=== PATIENT | female | born 2000 | race African-American/Black ===

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

== ENCOUNTER 2018-08-17 07:54 | Emergency (ER) | payer SELFPAY ==
[2018-08-17 08:37] LABS: Bilirubin Negative (Negative); Blood, Urine Large (Negative); Clarity CLOUDY (Clear); Glucose, Urine (Dipstick) Negative (Negative); Leukocyte Moderate (Negative); Nitrite Negative (Negative); Protein, Urine (Dipstick) Trace mg/dL (Neg-Trace); Specific Gravity, Urine 1.025 (1.002-1.036)
[2018-08-17 08:39] LABS: Pathc Cast-AUWi Flag 0.58 (0-2.49)
[2018-08-17 08:40] LABS: Pregnancy Test - Urine (BHCG) POSITIVE (Negative)
[2018-08-17 08:41] LABS: Pregu Control Background? CLEAR/WHITE (CLR/WHITE); Pregu Control Bar Appear? YES (CONTROL BAR); Specific Gravity 1.026 (1.002-1.036); Yeast-AUWi Flag 53.5 (0-25.0)
[2018-08-17 08:59] LABS: Bacteria/HPF Rare-Few HPF (None Seen)
[2018-08-17 09:00] LABS: Yeast-All Forms None Seen HPF (None Seen)
[2018-08-17] MEDS ORDERED: Acetaminophen 325 MG TAB ONE (09:06)
--- NOTE | 2018-08-17 10:47 | ULT ---
TRANSABDOMINAL AND TRANSVAGINAL PELVIC ULTRASOUND: Date: 08-17-18 Provided Clinical History: Vaginal bleeding. Positive test. FINDINGS: Uterus measures about 7.4 x 3.1 x 5.5 cm. There is no evidence for intrauterine gestational sac. Ther e is mild nonspecific thickening of the uterine endometrium. The right and left ovaries demonstrate normal flow on color doppler and spectral analysis. There is a trace amount of nonspecific free pelvic fluid. IMPRESSION: No evidence for intrauterine gestational sac. Ectopic cannot be excluded on the basis of th is study alone. Follow up BETA HCG values is recommended. POS: [facility]
== END 2018-08-17 11:46 | disposition home or self-care (01) ==
LOC: ERS 07:54
DX: O20.0 Threatened abortion (principal)
CPT/HCPCS: 36415; 76856; 81003; 81015; 81025; 84702; 86900; 86901; 87491; 87591

== ENCOUNTER 2018-08-19 08:40 | Emergency (ER) | payer SELFPAY ==
[2018-08-19 09:08] LABS: #Basophils 0.1 thou/uL (0.0-0.2); #Eosinphils 0.3 thou/uL (0.0-0.7); #Lymphocytes 2.7 thou/uL (1.20-3.40); #Monocytes 0.7 thou/uL (0.11-0.59); #Neutrophils 8.9 thou/uL (1.40-6.50); %Basophils 0.9 % (0.0-1.0); %Eosinophils 2.1 % (0.0-10.0); %Lymphocytes 21.1 % (28.0-48.0); %Monocytes 5.7 % (0.0-4.0); %Neutrophils 70.3 % (31.0-61.0); Hemoglobin 12.3 g/dL (12.0-16.0); Mean Corpuscular HGB CONC 32.5 g/dL (32.0-36.0); Mean Corpuscular Hemoglobin 31.3 pg (25.0-35.0); Mean Corpuscular Volume 96.4 fL (78.0-98.0); Mean Platelet Volume 7.3 fL (7.4-10.4); Platelet Count 280 thou/uL (130-400); RBC Distribution Width 11.6 % (11.5-14.5); Red Blood Cell (RBC) Count 3.92 mill/uL (4.00-5.20); White Blood Cell (WBC) Count 12.6 thou/uL (4.8-10.8)
--- NOTE | 2018-08-19 10:34 | ULT ---
PELVIC ULTRASOUND: HISTORY: Repeat ultrasound and HCG. Threatened . Previous HCG was 248. Current HCG is 150. COMPARISON: 08/17/2018. TECHNIQUE: Transabdominal and endovaginal imaging of the pelvis is performed. Ovaries are interrogated with gra y scale, color, Doppler imaging with spectral waveform analysis. FINDINGS: Uterus is identified, measuring 7.3 x 3.6 x 4.7 cm. Endometrium has an essentially homogeneous echot exture measuring 1 cm. There is a small anechoic focus within the endometrium measuring 0.3 x 0.3 x 0.2 cm. No evidence of a gestational sac, yolk sac, or pole. Both ovaries have a normal echotexture. With regards to the right ovary, there is an isoechoic area w ith increased vascular flow measuring 1.9 x 1.7 x 1.3 cm which is nonspecific. The possibility of a corpus luteal cyst is raised. The right ovary measures 2.3 x 3.2 x 8.6 cm. The left ovary measures 2 .0 x 2.8 x 1.8 cm. No free fluid. IMPRESSION: 1. Small echogenic focus in the endometrium without evidence of gestational sac, yolk sac, or pole. The possibility of an empty gestational sac cannot be excluded. Continued surveillance with u ltrasound and beta HCG is recommended. 2. Isoechoic focus with increased vascularity in the right ovary which may represent a corpus luteal cyst. POS: [facility]
== END 2018-08-19 10:41 | disposition home or self-care (01) ==
LOC: ERS 08:40
DX: O03.9 Complete or unspecified spontaneous abortion without complication (principal)
CPT/HCPCS: 36415; 76856; 84702; 85025

== ENCOUNTER 2018-11-03 11:48 | Emergency (ER) | payer OTHER, SELFPAY ==
[2018-11-03 12:13] LABS: Bilirubin Negative (Negative); Blood, Urine Negative (Negative); Clarity CLOUDY (Clear); Glucose, Urine (Dipstick) Negative (Negative); Leukocyte Small (Negative); Nitrite Negative (Negative); Protein, Urine (Dipstick) Negative (Neg-Trace); Specific Gravity, Urine 1.023 (1.002-1.036); Urobilinogen 0.2 mg/dL (0.2-1.0); pH, Urine 7.5 (5.0-9.0)
[2018-11-03 12:15] LABS: Bacteria/HPF None Seen HPF (None Seen); Hyaline Casts/LPF 0-3 HYALINE CAST LPF (0-3 Hyaline); RBC/HPF 0-3 HPF (0-3)
[2018-11-03 12:16] LABS: Pregnancy Test - Urine (BHCG) Negative (Negative); Pregu Control Background? CLEAR/WHITE (CLR/WHITE); Pregu Control Bar Appear? YES (CONTROL BAR); Specific Gravity 1.023 (1.002-1.036)
== END 2018-11-03 12:53 | disposition left against medical advice (07) ==
LOC: ERS 11:48
DX: N89.8 Other specified noninflammatory disorders of vagina (principal)
CPT/HCPCS: 81003; 81015; 81025; 99283

== ENCOUNTER 2019-01-25 10:07 | Emergency (ER) | payer OTHER, SELFPAY ==
[2019-01-25 10:55] LABS: Pregnancy Test - Urine (BHCG) Negative (Negative); Pregu Control Background? CLEAR/WHITE (CLR/WHITE); Pregu Control Bar Appear? YES (CONTROL BAR); Specific Gravity 1.017 (1.002-1.036)
[2019-01-25 11:00] LABS: Bacteria/HPF None Seen HPF (None Seen); Bilirubin Negative (Negative); Blood, Urine Negative (Negative); Clarity Clear (Clear); Glucose, Urine (Dipstick) Normal (Negative); Leukocyte 25 Leu/uL (Negative); Nitrite Negative (Negative); Protein, Urine (Dipstick) Negative (Neg-Trace); Urobilinogen Normal mg/dL (Less than 2)
[2019-01-28 00:06] LABS: Chlamydia by PCR DETECTED (NotDetected); GC by PCR Not Detected (NotDetected)
== END 2019-01-25 11:25 | disposition home or self-care (01) ==
LOC: ERS 10:07
DX: N89.8 Other specified noninflammatory disorders of vagina (principal)
CPT/HCPCS: 81003; 81015; 81025; 87480; 87491; 87510; 87591; 87660; 99283

== ENCOUNTER 2019-05-31 09:09 | Emergency (ER) | payer OTHER, SELFPAY ==
[2019-05-31 09:55] LABS: Bilirubin Negative (Negative); Blood, Urine Negative (Negative); Clarity Clear (Clear); Glucose, Urine (Dipstick) Normal (Negative); Leukocyte Negative Leu/uL (Negative); Nitrite Negative (Negative); Protein, Urine (Dipstick) 10 mg/dL (Neg-Trace); Urobilinogen Normal mg/dL (Less than 2)
[2019-05-31 09:57] LABS: Pregnancy Test - Urine (BHCG) Negative (Negative); Pregu Control Background? CLEAR/WHITE (CLR/WHITE); Pregu Control Bar Appear? YES (CONTROL BAR); Specific Gravity 1.025 (1.002-1.036)
[2019-05-31] MEDS ORDERED: cefTRIAXone\\ROCEPHIN 250 MG VIAL ONE (10:24)
[2019-05-31] MEDS ORDERED: Lidocaine 1% PF 5 ML VIAL ONE (10:24)
== END 2019-05-31 10:45 | disposition home or self-care (01) ==
LOC: ERS 09:09
DX: N89.8 Other specified noninflammatory disorders of vagina (principal)
CPT/HCPCS: 81003; 81025; 96372; 99284; J0696; J2001

== ENCOUNTER 2019-06-21 06:10 | Emergency (ER) | payer SELFPAY ==
[2019-06-21] MEDS ORDERED: Acetaminophen 500 MG TAB ONE (06:45)
== END 2019-06-21 06:56 | disposition home or self-care (01) ==
LOC: ERS 06:10
DX: J10.1 Influenza due to other identified influenza virus with other respiratory manifestations (principal)
CPT/HCPCS: 87804; 99283

== ENCOUNTER 2019-10-04 08:08 | Emergency (ER) | payer SELFPAY ==
[2019-10-04 08:35] LABS: #Basophils 0.1 thou/uL (0.0-0.2); #Eosinphils 0.3 thou/uL (0.0-0.7); #Lymphocytes 2.9 thou/uL (1.20-3.40); #Monocytes 0.5 thou/uL (0.11-0.59); #Neutrophils 4.8 thou/uL (1.40-6.50); %Basophils 1.1 % (0.0-1.0); %Eosinophils 2.9 % (0.0-10.0); %Lymphocytes 33.4 % (21.0-51.0); %Monocytes 6.1 % (0.0-10.0); %Neutrophils 56.4 % (42.0-75.0); Hemoglobin 13.2 g/dL (12.0-16.0); Mean Corpuscular HGB CONC 32.1 g/dL (32.0-36.0); Mean Corpuscular Hemoglobin 30.7 pg (27.0-31.0); Mean Corpuscular Volume 95.6 fL (78.0-98.0); Mean Platelet Volume 7.9 fL (7.4-10.4); Platelet Count 297 thou/uL (130-400); RBC Distribution Width 11.8 % (11.5-14.5); White Blood Cell (WBC) Count 8.6 thou/uL (4.8-10.8)
[2019-10-04 10:35] LABS: Bacteria/HPF 2+ HPF (None Seen); Bilirubin Negative (Negative); Blood, Urine Negative (Negative); Clarity Turbid (Clear); Glucose, Urine (Dipstick) Normal (Negative); Leukocyte 25 Leu/uL (Negative); Nitrite Negative (Negative); Protein, Urine (Dipstick) 20 mg/dL (Neg-Trace); RBC/HPF 0-3 HPF (0-3); Urobilinogen 3 mg/dL (Less than 2)
[2019-10-04 10:36] LABS: Pregnancy Test - Urine (BHCG) Negative (Negative); Pregu Control Background? CLEAR/WHITE (CLR/WHITE); Pregu Control Bar Appear? YES (CONTROL BAR); Specific Gravity 1.027 (1.002-1.036)
== END 2019-10-04 11:02 | disposition home or self-care (01) ==
LOC: ERS 08:08
DX: N93.9 Abnormal uterine and vaginal bleeding, unspecified (principal)
CPT/HCPCS: 36415; 81003; 81015; 81025; 84702; 85025; 86900; 86901; 99284

== ENCOUNTER 2019-12-28 00:46 | Emergency (ER) | payer SELFPAY ==
[2019-12-28 03:49] LABS: Bacteria/HPF None Seen HPF (None Seen); Bilirubin Negative (Negative); Blood, Urine Negative (Negative); Clarity Clear (Clear); Glucose, Urine (Dipstick) Normal (Negative); Ketone, Urine Negative (Negative); Leukocyte 250 Leu/uL (Negative); Nitrite Negative (Negative); Protein, Urine (Dipstick) 30 mg/dL (Neg-Trace); Specific Gravity, Urine 1.035 (1.002-1.036); WBC/HPF 21-50 HPF (0-3)
[2019-12-28 03:58] LABS: RBC/HPF None Seen HPF (0-3)
[2019-12-28 04:01] LABS: Pregnancy Test - Urine (BHCG) Negative (Negative); Pregu Control Background? CLEAR/WHITE (CLR/WHITE); Pregu Control Bar Appear? YES (CONTROL BAR); Specific Gravity 1.035 (1.002-1.036)
[2019-12-29 16:06] LABS: Chlamydia by PCR Not Detected (NotDetected); GC by PCR DETECTED (NotDetected)
== END 2019-12-28 04:17 | disposition home or self-care (01) ==
LOC: ERS 00:46
DX: N39.0 Urinary tract infection, site not specified (principal)
CPT/HCPCS: 81003; 81015; 81025; 87480; 87491; 87510; 87591; 87660; 99283

== ENCOUNTER → 2019-12-31 | Day surgery (SDC) | payer SELFPAY ==
[~2019-12-31] MED LIST: Azithromycin 250 MG TAB ONE; Lidocaine 1% (PF) 30 ML VIAL ONE; cefTRIAXone\\ROCEPHIN 250 MG VIAL ONE
== END ==
LOC: ERS 11:00
DX: Z13.89 Encounter for screening for other disorder (principal)
CPT/HCPCS: J0696; J2001

== ENCOUNTER 2020-01-06 20:42 | Emergency (ER) | payer OTHER ==
[2020-01-06 21:53] LABS: #Basophils 0.2 thou/uL (0.0-0.2); #Eosinphils 0.4 thou/uL (0.0-0.7); #Monocytes 0.8 thou/uL (0.11-0.59); #Neutrophils 5.8 thou/uL (1.40-6.50); %Basophils 1.8 % (0.0-1.0); %Eosinophils 3.6 % (0.0-10.0); %Lymphocytes 35.4 % (21.0-51.0); %Monocytes 7.3 % (0.0-10.0); %Neutrophils 51.9 % (42.0-75.0); Hemoglobin 12.1 g/dL (12.0-16.0); Mean Corpuscular HGB CONC 31.7 g/dL (32.0-36.0); Mean Corpuscular Hemoglobin 30.6 pg (27.0-31.0); Mean Corpuscular Volume 96.5 fL (78.0-98.0); Mean Platelet Volume 7.7 fL (7.4-10.4); Platelet Count 289 thou/uL (130-400); RBC Distribution Width 11.8 % (11.5-14.5); Red Blood Cell (RBC) Count 3.97 mill/uL (4.20-5.40); White Blood Cell (WBC) Count 11.2 thou/uL (4.8-10.8)
--- NOTE | 2020-01-07 08:30 | ULT ---
PELVIC ULTRASOUND: DATE: 01/06/2020. COMPARISON: None. HISTORY: Vaginal bleeding, a 19-year-old female. TECHNIQUE: Multiplanar avelar scale sonographic imaging of the pelvis is obtained with endovaginal imaging. The o varies are assessed with color flow and spectral analysis/Doppler interrogation. FINDINGS: The uterus measures 7.8 x 4.0 x 4.2 cm. There is a small round hypoechoic structure within the endom etrial stripe suggesting a gestational sac. It does not contain a pole or a yolk sac, however. The right ovary measures 4.0 x 2.1 cm x 1.9 cm and demonstrates normal blood flow without evidence fo r mass. The left ovary measures 4.2 x 2.2 x 2.1 cm and demonstrates normal blood flow without evidence of mas s. Small volume free fluid noted in the pelvic cul-de-sac. The hypoechoic structure within the endometrial stripe suggests a gestational sac with a diameter of 0.38 cm, which would correlate with a 5-week 1-day gestation. Estimated date of delivery is 1. IMPRESSION: Small volume free fluid in the pelvic cul-de-sac. Probable small intrauterine gestational sac with n o pole or yolk sac at this time. This likely represents a normal early . Correlation with quantitative beta HCG in 48 hours is advised to exclude the less likely possibility of a pseudo gestational sac in the setting of sonographically occult ectopic . POS: [facility]
== END 2020-01-07 00:42 | disposition home or self-care (01) ==
LOC: ERS 20:42
DX: O20.9 Hemorrhage in early pregnancy, unspecified (principal)
CPT/HCPCS: 36415; 76856; 84702; 85025; 86900; 86901

== ENCOUNTER 2021-11-29 01:45 | Emergency (ER) | payer OTHER ==
[2021-11-29] MEDS ORDERED: Ketorolac Tromethamine 30 MG/ML VIAL ONE (02:57)
== END 2021-11-29 03:24 | disposition home or self-care (01) ==
LOC: ERS 01:45
DX: S83.92XA Sprain of unspecified site of left knee, initial encounter (principal); W18.30XA Fall on same level, unspecified, initial encounter
CPT/HCPCS: 96372; J1885